=== PATIENT | female | born 1965 | race Caucasian/White ===

== ENCOUNTER 2023-04-23 13:23 | Observation (INO) ==
--- NOTE | 2023-04-23 13:29 | ED Triage Note ---
Date of Service April 23, 2023 History of Present Illness This patient was briefly evaluated while in triage. An abbreviated physical exam was performed. This patient is a 57-year-old Female who presents to the ED for evaluation uncontrolled/unexplained weepiness/crying, confusion, trouble finding her wor ds/finishing thoughts, off balance, slurring of speech on occasion ongoing x 5-7 days no focal facial droop or extremity weakness no history of CVA history of hypertension Physical Exam GENERAL: Tearful, ambulatory into triage independently CARDIOVASCULAR: RRR RESPIRATORY: CTA NEURO: CN II-XII grossly intact, speech clear, normal gait, equal market research lead strength, answers questions appropriately Initial orders for labs and / or imaging were placed and patient was placed in the waiting area until a bed is available. Please see further documentation for the full ED course.
--- NOTE | 2023-04-23 17:07 | Emergency Department Note ---
History of Present Illness General Chief complaint: TIA Symptoms Stated complaint: CONFUSED,SLURRING OF SPEECH,UNBALANCED Time Seen by Provider: 04/23/23 16:42 Source: patient, family ( who is at the bedside), RN notes reviewed and old records reviewed (Including in office if it is from 01-16-2023) Mode of arrival: ambulatory Limitations: no limitations History of Present Illness This patient is a 57-year-old female comes in after having difficulty talking and feeling confused for the last 5 days. Initially itwas off-and-on but its been more persistent and she feels her balance is off at x2 she also feels very emotional. She was attributing it to her medication she is on a statin which she thinks may have been making her confused she started at the end of December. She had no fall or trauma denies headache. No fever chills. no change in vision. no focal numbness or weakness. No chest pain or shortness of breath or abdominal pain. She is having a hard time getting the words out but no slurred speech. She does have a history of a provoked DVT but is on no blood thinners at present Home Medications Medication Instructions Recorded Confirmed Type empagliflozin 10 mg tablet 10 mg PO QAM #90 tabs 01/16/23 04/23/23 Rx (Jardiance) rosuvastatin 20 mg tablet 20 mg PO DAILY #90 tabs 01/16/23 04/23/23 Rx telmisartan 20 mg tablet 20 mg PO DAILY #90 tabs 01/16/23 04/23/23 Rx Allergies Allergy/AdvReac Type Severity Reaction Status Date / Time No Known Allergies Allergy Unknown Verified 04/23/23 19:43 Past Med/Surg History Medical History COVID-19 (~2020) Hyperlipidemia rosuvastatin Pulmonary embolism 2005--after left knee arthroscopy and on control--no blood thinners Surgical History History of arthroscopy of left knee meniscus repair History of section History of colonoscopy History of tooth extraction History of wisdom tooth extraction Family History Grandmother (Paternal) Family history of diabetes mellitus Grandmother (Maternal) Family history of diabetes mellitus Father Diabetes Heart disease Drug abuse Brother Heart disease Other No family history of adverse response to anesthesia Denies family history of Ovarian cancer Social History Smoking Status: Never smoker Tobacco Type: Cigarettes Age Started Using Tobacco: 11; Age Quit Using Tobacco: 18; Cigarettes Per Day: socailly; Second Hand Exposure: No; Do You Dip or Chew Tobacco: No; Hx Alcohol Use: No Hx Substance Use: No Preferred Language: Welsh Communication Ability: Effective Visual Impairment: Diminished Hearing Ability: Hard of Hearing Bioinformatics Specialist Required: No Beliefs That Will Affect Care: None marital status: Current Living Situation: Spouse Current Living Situation Comment: Lives with and 2 kids 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 Feels Safe at Home: Yes Childhood Exposure to Second-Hand Smoke: Yes Diet: regular caffeine: Yes Dental Care, Regularly: Yes Physical Activity Frequency: 1-2 Times per Week Seatbelt Use: always Sunscreen Use: Yes (sometimes) Do you think of yourself as: straight/heterosexual Assistive Devices: Glasses Assistive Devices Comment: readers Review of Systems A total of 10 systems reviewed and were otherwise negative Physical Exam Vital Signs Vital Signs - 24 hr 04/23/23 13:28 04/23/23 17:03 04/23/23 16:53 Temperature 36.5 C Temperature Source Temporal Artery Scan Pulse Rate 81 88 Pulse Rate [Apical] 89 Pulse Rate from SpO2 Sensor Pulse Rhythm [Apical] Regular Pulse Strength [Apical] Normal Respiratory Rate 18 20 Respiratory Effort / Characteristics Non-Labored Non-Labored Spontaneous Respiratory Depth Normal Normal Respiratory Pattern Regular Regular Blood Pressure 171/100 H Blood Pressure [Right Arm] 166/116 H Blood Pressure Mean 123 Blood Pressure Mean [Right Arm] 132 Blood Pressure Position [Right Arm] Sitting Pulse Oximetry 96 95 Oxygen Delivery Method Room Air Room Air Sepsis Recent Fever Within 48 Hours No Sepsis New/Unexplained Change in Mental Status N/A Sepsis Action Taken by Nursing No Action Required 04/23/23 18:49 04/23/23 19:00 Temperature Temperature Source Pulse Rate 76 Pulse Rate [Apical] 75 Pulse Rate from SpO2 Sensor 77 Pulse Rhythm [Apical] Regular Pulse Strength [Apical] Normal Respiratory Rate 20 20 Respiratory Effort / Characteristics Non-Labored Spontaneous Respiratory Depth Normal Respiratory Pattern Regular Blood Pressure 144/80 H Blood Pressure [Right Arm] 142/80 H Blood Pressure Mean 101 Blood Pressure Mean [Right Arm] 100 Blood Pressure Position [Right Arm] Sitting Pulse Oximetry 98 95 Oxygen Delivery Method Room Air Sepsis Recent Fever Within 48 Hours Sepsis New/Unexplained Change in Mental Status Sepsis Action Taken by Nursing General: Well developed well nourished middle-age female who is intermittently teary-eyed but answers all questions appropriately she does appear to have some issues with getting the words out but they are not slurred in no acute distress, breathing comfortably on room air. Alert and orient x3 HEENT: Normal cephalic atraumatic. Pupils are equal round and reactive to light. Extraocular movements are intact. Oropharynx is pink with moist mucous membranes. No swelling of the mouth lips or tongue. Neck: Supple with a midline trachea. No meningeal signs or stiffness, no JVD or bruits. No Stridor. Chest: Clear to auscultation bilaterally. No wheezes or rhonchi. No increased work of breathing. Heart: Regular rate and rhythm without murmurs or gallops. Abdomen: Soft nontender, nondistended without rebound guarding or rigidity. Extremities: No cyanosis clubbing or edema. No calf tenderness or assymetry Spine/Back. Non tender to palpation. No CVA tenderness Skin: Good turgor without rashes. Neurologic exam: Cranial nerves two through 12 are intact. Motor and sensation are intact and symmetrical throughout. No tremor. She does have some trouble getting the words out. Finger-nose intact. No pronator drift. Course Administered Medications Enoxaparin Sodium (Enoxaparin Inj 40 Mg/0.4 Ml Syr) 40 mg SQ Q24H [facility] Stop: 05/23/23 21:59 Last Admin: 04/23/23 22:21 Dose: 40 mg Documented By: KOFI Discontinued Medications Aspirin (Aspirin 81 Mg Chew) 324 mg PO NOW STA Stop: 04/23/23 21:11 Last Admin: 04/23/23 22:20 Dose: 324 mg Documented By: KOFI Clopidogrel Bisulfate (Clopidogrel Bisulfate 300 Mg Tab) 300 mg PO NOW STA Stop: 04/23/23 21:11 Last Admin: 04/23/23 22:20 Dose: 300 mg Documented By: KOFI Ioversol (Ioversol 350 Mg 125ml Prefilled Syringe) 117 ml IV ONCE ONE Stop: 04/23/23 17:46 Last Admin: 04/23/23 17:45 Dose: 117 ml Documented By: CHRISTOPHE Medical Decision Making Differential Diagnosis Stroke, intracranial process or mass, infection, electrolyte or metabolic abnor mality, trauma Medical Records Attestation: I reviewed the patient's medical records. Home Medications Current Medication List: was personally reviewed by me Laboratory Data Attestation: I reviewed the patient's lab results. 04/23/23 17:07 04/23/23 17:07 Lab Results 04/23/23 04/23/23 04/23/23 Range/Units 17:07 17:07 17:07 WBC 8.09 (4.8-10.8) K/ul RBC 5.65 H (4.20-5.40) M/uL Hgb 16.9 H (12.0-16.0) g/dl POC Hgb (12.0-16.0) g/dl Hct 50.0 H (37.0-47.0) % POC Hct (37-47) % MCV 88.5 (80.0-100.0) fL MCH 29.9 (25.0-34.0) pg MCHC 33.8 (32.0-36.0) g/dL RDW Std Deviation 44.0 (36.4-46.3) fL RDW Coeff of Yong 13.6 (11.5-14.5) % Plt Count 277 (130-400) K/uL MPV 9.7 (9.4-12.4) fL Immature Gran % (Auto) 0.1 % Neut % (Auto) 49.8 % Lymph % (Auto) 40.5 % Wharton % (Auto) 7.0 % Eos % (Auto) 1.9 % Baso % (Auto) 0.7 % Neut # (Auto) 4.02 (1.40-6.50) K/uL Lymph # (Auto) 3.28 (1.2-3.4) K/uL Wharton # (Auto) 0.57 (0.11-0.59) K/uL Eos # (Auto) 0.15 (0-0.50) K/uL Baso # (Auto) 0.06 (0-0.2) K/uL Immature Gran # (Auto) 0.01 (0.01-0.20) K/uL PT Cancelled INR Cancelled APTT Cancelled PTT Ratio Cancelled POC Sodium (135-144) mmol/L Sodium (136-145) mmol/L POC Potassium (3.3-5.0) mmol/L Potassium (3.5-5.1) mmol/L POC Chloride (101-112) mmol/L Chloride (98-107) mmol/L Carbon Dioxide (21-32) mmol/L POC Total CO2 (24-31) mmol/L Anion Gap (3-11) POC Anion Gap (16-25) mmol/L POC BUN (7-18) mg/dl BUN (6-23) mg/dl Creatinine (0.6-1.2) mg/dl POC Creatinine (0.6-1.3) mg/dl Est Cr Clr Drug Dosing ml/min Est GFR ( Amer) ml/min Est GFR (Non-Af Amer) ml/min BUN/Creatinine Ratio (10-20) Glucose (70-99(Fasting)) mg/dl POC Glucose (other) (70-99) mg/dl Calcium (8.6-10.3) mg/dl POC Ioniz Calcium Lobo (1.12-1.32) mmol/l Magnesium (1.7-2.4) mg/dl Total Bilirubin (0.2-1.0) mg/dl AST (13-39) U/L ALT (7-52) U/L Alkaline Phosphatase (34-104) U/L Troponin I High Sens (0-14) pg/ml Total Protein (6.0-8.3) gm/dl Albumin (3.4-5.0) gm/dl Globulin (2.5-4.0) gm/dl Albumin/Globulin Ratio (0.9-2) TSH 2.307 (0.300-4.500) uIu/ml 04/23/23 04/23/23 04/23/23 Range/Units 17:07 17:16 18:17 WBC (4.8-10.8) K/ul RBC (4.20-5.40) M/uL Hgb (12.0-16.0) g/dl POC Hgb 17.7 H (12.0-16.0) g/dl Hct (37.0-47.0) % POC Hct 52 H (37-47) % MCV (80.0-100.0) fL MCH (25.0-34.0) pg MCHC (32.0-36.0) g/dL RDW Std Deviation (36.4-46.3) fL RDW Coeff of Yong (11.5-14.5) % Plt Count (130-400) K/uL MPV (9.4-12.4) fL Immature Gran % (Auto) % Neut % (Auto) % Lymph % (Auto) % Wharton % (Auto) % Eos % (Auto) % Baso % (Auto) % Neut # (Auto) (1.40-6.50) K/uL Lymph # (Auto) (1.2-3.4) K/uL Wharton # (Auto) (0.11-0.59) K/uL Eos # (Auto) (0-0.50) K/uL Baso # (Auto) (0-0.2) K/uL Immature Gran # (Auto) (0.01-0.20) K/uL PT 11.1 INR 1.0 APTT 27.0 PTT Ratio 1.0 POC Sodium 143 (135-144) mmol/L Sodium 140 (136-145) mmol/L POC Potassium 3.8 (3.3-5.0) mmol/L Potassium 3.8 (3.5-5.1) mmol/L POC Chloride 103 (101-112) mmol/L Chloride 104 (98-107) mmol/L Carbon Dioxide 28 (21-32) mmol/L POC Total CO2 25 (24-31) mmol/L Anion Gap 8 (3-11) POC Anion Gap 19.0 (16-25) mmol/L POC BUN 13 (7-18) mg/dl BUN 14 (6-23) mg/dl Creatinine 0.84 (0.6-1.2) mg/dl POC Creatinine 0.7 (0.6-1.3) mg/dl Est Cr Clr Drug Dosing 86.1 ml/min Est GFR ( Amer) 88.8 ml/min Est GFR (Non-Af Amer) 76.6 ml/min BUN/Creatinine Ratio 16.7 (10-20) Glucose 98 (70-99(Fasting)) mg/dl POC Glucose (other) 102 H (70-99) mg/dl Calcium 9.9 (8.6-10.3) mg/dl POC Ioniz Calcium Lobo 1.27 (1.12-1.32) mmol/l Magnesium 2.2 (1.7-2.4) mg/dl Total Bilirubin 0.4 (0.2-1.0) mg/dl AST 16 (13-39) U/L ALT 20 (7-52) U/L Alkaline Phosphatase 62 (34-104) U/L Troponin I High Sens 2.7 (0-14) pg/ml Total Protein 8.5 H (6.0-8.3) gm/dl Albumin 4.7 (3.4-5.0) gm/dl Globulin 3.8 (2.5-4.0) gm/dl Albumin/Globulin Ratio 1.2 (0.9-2) TSH (0.300-4.500) uIu/ml Imaging Data Attestation: I personally reviewed and interpreted this imaging study as foll ows: My Impression: Head CTthere is a hypodensity lateral to the ventricles at the posterior of the frontal lobe Radiologist's Impression: Head CT 04/23/23 13:31 CT angio head w con, CT angio neck with con, CT head/brain wo con CLINICAL HISTORY: 57 years-old Female with confusion, trouble word finding x 1 week. Acute confusion COMPARISON STUDY: None TECHNIQUE: Unenhanced axial CT scan of the brain is performed. Subsequently, following the IV administration of 117 cc of Optiray, CT angiogram of the head and neck was performed from the skull base to the vertex. Images are reviewed in the axial, sagittal, and coronal planes. 3-D MIPS images are created and assessed. IV contrast was administered without complication. All measurements were obtained according to NASCET criteria. A dose lowering technique was utilized adhering to the principles of ALARA. CT DOSE: 1242.25 mGy.cm FINDINGS: CT BRAIN: There is no acute intracranial hemorrhage, midline shift, hydrocephalus, intracranial mass, territorial ischemia or abnormal extra-axial collections. No abnormal intra-axial or extra-axial enhancement. Scattered white matter hypodensities. Ill-defined 1.1 cm focus of decreased attenuation within the right frontal lobe felix ready to on image 21 series 2. Mastoid air cells and middle ear cavities are clear. No calvarial fracture. Paranasal sinuses are clear. CT ANGIOGRAM OF THE HEAD AND NECK: Mild atherosclerosis of the thoracic aorta. Patency of innominate and image subclavian arteries. Common carotid arteries are patent. Atherosclerosis of the carotid bulbs. The internal carotid arteries are patent. Streak artifact from dental hardware limits the study. Areas of high-grade stenosis noted within the M1 segment of the left middle cerebral artery. The right middle and bilateral anterior cerebral arteries are patent. Dominant left vertebral artery. The vertebrobasilar system and posterior cerebral arteries are widely patent. There is no aneurysm, high-grade stenosis, or proximal branch occlusion identified. Dural sinuses appear patent. Lung apices are clear. Unremarkable soft tissues. Degenerative changes of the cervical spine. IMPRESSION: 1. No acute intracranial hemorrhage, midline shift or acute territorial infarct. 2. Mild ill-defined white matter hypodensities are nonspecific, however favor chronic microvascular ischemic disease. 3. 1.1 cm hypodense focus within the right frontal lobe felix radiata may represent an additional area of white matter disease versus an age-indeterminate small infarct. 4. High-grade stenosis of the M1 segment of the left middle cerebral artery. 5. Otherwise unremarkable CTA of the head and neck. ACT 112: Negative or not required by law. The above report was generated using voice recognition software. It may contain grammatical, syntax or spelling errors. Electronically signed by: Martir Ansari M.D. 04/23/2023 6:05 PM Head CTA 04/23/23 13:31 CT angio head w con, CT angio neck with con, CT head/brain wo con CLINICAL HISTORY: 57 years-old Female with confusion, trouble word finding x 1 week. Acute confusion COMPARISON STUDY: None TECHNIQUE: Unenhanced axial CT scan of the brain is performed. Subsequently, following the IV administration of 117 cc of Optiray, CT angiogram of the head and neck was performed from the skull base to the vertex. Images are reviewed in the axial, sagittal, and coronal planes. 3-D MIPS images are created and assessed. IV contrast was administered without complication. All measurements were obtained according to NASCET criteria. A dose lowering technique was utilized adhering to the principles of ALARA. CT DOSE: 1242.25 mGy.cm FINDINGS: CT BRAIN: There is no acute intracranial hemorrhage, midline shift, hydrocephalus, intracranial mass, territorial ischemia or abnormal extra-axial collections. No abnormal intra-axial or extra-axial enhancement. Scattered white matter hypodensities. Ill-defined 1.1 cm focus of decreased attenuation within the right frontal lobe felix ready to on image 21 series 2. Mastoid air cells and middle ear cavities are clear. No calvarial fracture. Paranasal sinuses are kj ar. CT ANGIOGRAM OF THE HEAD AND NECK: Mild atherosclerosis of the thoracic aorta. Patency of innominate and image subclavian arteries. Common carotid arteries are patent. Atherosclerosis of the carotid bulbs. The internal carotid arteries are patent. Streak artifact from dental hardware limits the study. Areas of high-grade stenosis noted within the M1 segment of the left middle cerebral artery. The right middle and bilateral anterior cerebral arteries are patent. Dominant left vertebral artery. The vertebrobasilar system and posterior cerebral arteries are widely patent. There is no aneurysm, high-grade stenosis, or proximal branch occlusion identified. Dural sinuses appear patent. Lung apices are clear. Unremarkable soft tissues. Degenerative changes of the cervical spine. IMPRESSION: 1. No acute intracranial hemorrhage, midline shift or acute territorial infarct. 2. Mild ill-defined white matter hypodensities are nonspecific, however favor chronic microvascular ischemic disease. 3. 1.1 cm hypodense focus within the right frontal lobe felix radiata may represent an additional area of white matter disease versus an age-indeterminate small infarct. 4. High-grade stenosis of the M1 segment of the left middle cerebral artery. 5. Otherwise unremarkable CTA of the head and neck. ACT 112: Negative or not required by law. The above report was generated using voice recognition software. It may contain grammatical, syntax or spelling errors. Electronically signed by: Martir Ansari M.D. 04/23/2023 6:05 PM Neck CTA 04/23/23 13:31 CT angio head w con, CT angio neck with con, CT head/brain wo con CLINICAL HISTORY: 57 years-old Female with confusion, trouble word finding x 1 week. Acute confusion COMPARISON STUDY: None TECHNIQUE: Unenhanced axial CT scan of the brain is performed. Subsequently, following the IV administration of 117 cc of Optiray, CT angiogram of the head and neck was performed from the skull base to the vertex. Images are reviewed in the axial, sagittal, and coronal planes. 3-D MIPS images are created and assessed. IV contrast was administered without complication. All measurements were obtained according to NASCET criteria. A dose lowering technique was utilized adhering to the principles of ALARA. CT DOSE: 1242.25 mGy.cm FINDINGS: CT BRAIN: There is no acute intracranial hemorrhage, midline shift, hydrocephalus, intracranial mass, territorial ischemia or abnormal extra-axial collections. No abnormal intra-axial or extra-axial enhancement. Scattered white matter hypodensities. Ill-defined 1.1 cm focus of decreased attenuation within the right frontal lobe felix ready to on image 21 series 2. Mastoid air cells and middle ear cavities are clear. No calvarial fracture. Paranasal sinuses are clear. CT ANGIOGRAM OF THE HEAD AND NECK: Mild atherosclerosis of the thoracic aorta. Patency of innominate and image subclavian arteries. Common carotid arteries are patent. Atherosclerosis of the carotid bulbs. The internal carotid arteries are patent. Streak artifact from dental hardware limits the study. Areas of high-grade stenosis noted within the M1 segment of the left middle cerebral artery. The right middle and bilateral anterior cerebral arteries are patent. Dominant left vertebral artery. The vertebrobasilar system and posterior cerebral arteries are widely patent. There is no aneurysm, high-grade stenosis, or proximal branch occlusion identified. Dural sinuses appear patent. Lung apices are clear. Unremarkable soft tissues. Degenerative changes of the c ervical spine. IMPRESSION: 1. No acute intracranial hemorrhage, midline shift or acute territorial infarct. 2. Mild ill-defined white matter hypodensities are nonspecific, however favor chronic microvascular ischemic disease. 3. 1.1 cm hypodense focus within the right frontal lobe felix radiata may represent an additional area of white matter disease versus an age-indeterminate small infarct. 4. High-grade stenosis of the M1 segment of the left middle cerebral artery. 5. Otherwise unremarkable CTA of the head and neck. ACT 112: Negative or not required by law. The above report was generated using voice recognition software. It may contain grammatical, syntax or spelling errors. Electronically signed by: Martir Ansari M.D. 04/23/2023 6:05 PM ECG Data Attestation: I personally reviewed and interpreted this ECG as follows: Indication: + weakness Rate (beats per minute): 72 Rhythm: + normal sinus ECG Intervals/blocks: + Normal QRS, + Normal QT and + Normal CT ECG [place]: + Normal ECG ST segments: + Normal ST segments ECG Findings: + LVH; no PACs or no PVCs Comparison ECG Date: from (08/14/2006) Change: no significant change MDM Narrative This patient comes in as described above. She was placed in room A2. She has been having neurologic symptoms for about 5 days. She is well outside of any thrombolytic or neuro interventional window at this point. I will I am concerned with her symptoms that this may be neurologic or a central neurologic process. IV access was established and blood work was obtained i-STAT labs and blood sugar were obtained as well. She had a full stroke type work-up including CAT scan and CT angiography of the head and neck. She was reassessed frequently. She has no significant electrolyte or metabolic abnormality. EKG does not suggest acute coronary syndrome or arrhythmia. She has nothing to suggest infection. CAT scan of her head does show a hypodensity concerning for a stroke or white matter disease. There is a stenosis of the left M1 segment on the opposite side. I did discuss case with Dr. Ralph who feels the patient needs an MRI. I then discussed case with the [facility] hospitalist team and Dr. Andrade as well as the resident as the patient will be admitted/observed for a neurologic work-up. 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
[2023-04-23 17:22] LABS: Basophils # (auto) 0.06 K/uL (0-0.2); Basophils % (auto) 0.7 %; Eosinophils # (auto) 0.15 K/uL (0-0.50); Eosinophils % (auto) 1.9 %; Hemoglobin 16.9 g/dl (12.0-16.0); Immature Granulocytes # (auto) 0.01 K/uL (0.01-0.20); Immature Granulocytes % (auto) 0.1 %; Lymphocytes # (auto) 3.28 K/uL (1.2-3.4); Lymphocytes % (auto) 40.5 %; Mean Corpuscular Hemoglobin 29.9 pg (25.0-34.0); Mean Corpuscular Hgb Conc 33.8 g/dL (32.0-36.0); Mean Corpuscular Volume 88.5 fL (80.0-100.0); Mean Platelet Volume 9.7 fL (9.4-12.4); Monocytes # (auto) 0.57 K/uL (0.11-0.59); Neutrophils # (auto) 4.02 K/uL (1.40-6.50); Neutrophils % (auto) 49.8 %; Platelet Count 277 K/uL (130-400); RDW Coefficient of Variation 13.6 % (11.5-14.5); Red Blood Count 5.65 M/uL (4.20-5.40); White Blood Count 8.09 K/ul (4.8-10.8)
[2023-04-23 17:30] LABS: iSTAT Creatinine 0.7 mg/dl (0.6-1.3); iSTAT Hemoglobin 17.7 g/dl (12.0-16.0); iSTAT Ionized Calcium 1.27 mmol/l (1.12-1.32); iSTAT Potassium 3.8 mmol/L (3.3-5.0)
[2023-04-23 17:41] LABS: Albumin Globulin Ratio 1.2 (0.9-2); Albumin Level 4.7 gm/dl (3.4-5.0); BUN Creatinine Ratio 16.7 (10-20); Bilirubin,Total 0.4 mg/dl (0.2-1.0); Calcium 9.9 mg/dl (8.6-10.3); Creatinine Clr Calc Pharmacy 86.1 ml/min; Est GFR (African American) 88.8 ml/min; Est GFR (Non-African American) 76.6 ml/min; Globulin 3.8 gm/dl (2.5-4.0); Magnesium 2.2 mg/dl (1.7-2.4); Potassium 3.8 mmol/L (3.5-5.1); Total Protein 8.5 gm/dl (6.0-8.3)
[2023-04-23] MEDS ORDERED: IOVERSOL 350 MG 125mL Prefilled Syringe IV ONE (17:45)
[2023-04-23 17:48] LABS: Troponin I High Sensitivity 2.7 pg/ml (0-14)
--- NOTE | 2023-04-23 18:07 | CT Scan Report ---
CT angio head w con, CT angio neck with con, CT head/brain wo con CLINICAL HISTORY: 57 years-old Female with confusion, trouble word finding x 1 week. Acute confusi on COMPARISON STUDY: None TECHNIQUE: Unenhanced axial CT scan of the brain is performed. Subsequently, following the IV adminis tration of 117 cc of Optiray, CT angiogram of the head and neck was performed from the skull base to the vertex. Images are reviewed in the axial, sagittal, and coronal planes. 3-D MIPS images are creat ed and assessed. IV contrast was administered without complication. All measurements were obtained ac cording to NASCET criteria. A dose lowering technique was utilized adhering to the principles of TANNA Pierre. CT DOSE: 1242.25 mGy.cm FINDINGS: CT BRAIN: There is no acute intracranial hemorrhage, midline shift, hydrocephalus, intracranial mass, territori al ischemia or abnormal extra-axial collections. No abnormal intra-axial or extra-axial enhancement. Scattered white matter hypodensities. Ill-defined 1.1 cm focus of decreased attenuation within the ri ght frontal lobe felix ready to on image 21 series 2. Mastoid air cells and middle ear cavities are clear. No calvarial fracture. Paranasal sinuses are clear. CT ANGIOGRAM OF THE HEAD AND NECK: Mild atherosclerosis of the thoracic aorta. Patency of innominate and image subclavian arteries. Comm on carotid arteries are patent. Atherosclerosis of the carotid bulbs. The internal carotid arteries a re patent. Streak artifact from dental hardware limits the study. Areas of high-grade stenosis noted within the M1 segment of the left middle cerebral artery. The right middle and bilateral anterior cer ebral arteries are patent. Dominant left vertebral artery. The vertebrobasilar system and posterior c erebral arteries are widely patent. There is no aneurysm, high-grade stenosis, or proximal branch occ lusion identified. Dural sinuses appear patent. Lung apices are clear. Unremarkable soft tissues. Degenerative changes of the cervical spine. IMPRESSION: 1. No acute intracranial hemorrhage, midline shift or acute territorial infarct. 2. Mild ill-defined white matter hypodensities are nonspecific, however favor chronic microvascular i schemic disease. 3. 1.1 cm hypodense focus within the right frontal lobe eflix radiata may represent an additional ar ea of white matter disease versus an age-indeterminate small infarct. 4. High-grade stenosis of the M1 segment of the left middle cerebral artery. 5. Otherwise unremarkable CTA of the head and neck. ACT 112: Negative or not required by law. The above report was generated using voice recognition software. It may contain grammatical, syntax o r spelling errors. Electronically signed by: Martir Ansari M.D. 04/23/2023 6:05 PM
[2023-04-23 19:03] LABS: Prothrombin Time 11.1 Seconds (9.0-12.0)
--- NOTE | 2023-04-23 19:04 | Hospitalist Progress Note ---
Date of Service April 23, 2023 Assessment & Plan (1) Stroke: Plan: - Imagining with lesions concerning for stroke - Symptoms started 5 days ago; Out of window antithrombotics, permissive HTN - Dual Antiplatelet; aspirin/Plavix with loading dose - Increase rosuvastatin from 20mg to 40mg - Brain MRI - consult neuro - TTE with bubble study (2) Aphasia: Plan: As per above (3) Erythrocytosis: Plan: - Hgb= 16.9 - repeat qAM - Jak2, EPO and peripheral smear could be considered for further workup of erythrocytosis - Could also consider hypercoagulability work-up given history of PE and current symptoms (4) HTN, goal below 130/80: Plan: - out of window for permissive HTN, resume home medications (5) T2DM (type 2 diabetes mellitus): Plan: - last hemoglobin a1c= 6.8 03/2023 - continue Jardiance (6) Hyperlipidemia: Plan: - increase rosuvastatin from 20 to 40mg - lipid panel from 03/2023 Subjective 57 year old female with a past medical history of HLD, provoked PE and DM2 presenting with 5 days of neurological symptoms. She states that for the past 5 days she has been having trouble with word finding, has been more confused and has felt off balance. She also notes that she has had increased emotional lability and hot flashes for the past few months, last menstrual period was about 2 years ago. Denies headache, vision changes, slurred speech, injury. Does note family history of stroke. ED Work-Up Significant for: Head CT, Head/Neck CTA with . No acute intracranial hemorrhage, midline shift or acute territorial infarct. Mild ill-defined white matter hypodensities are nonspecific, however favor chronic microvascular ischemic disease.1.1 cm hypodense focus within the right frontal lobe felix radiata may represent an additional area of white matter disease versus an age- indeterminate small infarct.High-grade stenosis of the M1 segment of the left middle cerebral artery. Review of Systems Review of Systems: As per above Physical Exam Physical Exam: Constitutional: well-appearing, no acute distress HEENT: NCAT, no conjunctival injection CV: regular rhythm, no murmur appreciated, extremities well-perfused, no LE edema Resp: CTABL, no wheezes/rales/rhonchi appreciated, no increased work of breathing GI: soft, nondistended, nontender MSK: no gross deformities appreciated Skin: warm, dry, no rash appreciated Neurologic: CN's II-XI intact bilaterally, moves all extremities and awake; no focal motor deficits Speech / Cognition: normal speech Motor/Sensory: normal movement and no sensory deficit Strength 5/5 upper and lower extremities Results & Data Results & Data Vital Signs (Past 12 Hours) Vital Signs Temp Pulse Pulse Resp BP BP Pulse Ox 04/23/23 18:49 75 20 142/80 H 98 04/23/23 16:53 89 20 166/116 H 95 04/23/23 17:03 88 04/23/23 13:28 36.5 C 81 18 171/100 H 96 O2 Del Method 04/23/23 18:49 Room Air 04/23/23 16:53 Room Air 04/23/23 17:03 04/23/23 13:28 Room Air Resident Activity Tracking Resident Involvement: Resident Care Provided Care Provided: Adult Hospital Medicine
[2023-04-23 19:31] LABS: Appearance Urine Clear (Clear); Bacteria Urine Automated Negative (Negative); Bilirubin Urine Negative (Negative); Blood Urine Negative (Negative); Color Urine Yellow; Epithelial Cell Urine Auto >30 /lpf (0-5); Glucose Urine UA 2+ (Negative); Ketones Urine 1+ (Negative); Leukocyte Esterase Urine Negative (Negative); Nitrite Urine Negative (Negative); Protein Urine Trace (Negative); RBC Urine Automated 0-4 /hpf (0-4); Specific Gravity Urine > 1.045 (1.000-1.030); Urobilinogen Urine Negative (Negative)
[2023-04-23 19:57] LABS: Cast Urine Automated 0 /lpf (0-5)
[2023-04-23] MEDS ORDERED: ASPIRIN 81 MG CHEW PO STA (21:10)
[2023-04-23] MEDS ORDERED: CLOPIDOGREL BISULFATE 300 MG TAB PO STA (21:10)
--- NOTE | 2023-04-23 21:17 | History & Physical Report ---
Date of Service April 23, 2023 Assessment & Plan (1) Stroke: Plan: - Imagining with lesions concerning for stroke - Symptoms started 5 days ago; Out of window antithrombotics, permissive HTN - Dual Antiplatelet; aspirin/Plavix with loading dose - Increase rosuvastatin from 20mg to 40mg - Brain MRI - consult neuro - TTE with bubble study (2) Aphasia: Plan: As per above (3) Erythrocytosis: Plan: - Hgb= 16.9 - repeat qAM - Jak2, EPO and peripheral smear could be considered for further workup of erythrocytosis - Could also consider hypercoagulability work-up given history of PE and current symptoms (4) HTN, goal below 130/80: Plan: - out of window for permissive HTN, resume home medications (5) T2DM (type 2 diabetes mellitus): Plan: - last hemoglobin a1c= 6.8 03/2023 - continue Jardiance (6) Hyperlipidemia: Plan: - increase rosuvastatin from 20 to 40mg - lipid panel from 03/2023 Plan Diet: Full diet pending speech eval Dispo: Med Surg with Tele DVT Prophylaxis: Lovenox Code Status: Full Admission and Anticipated Discharge Date Admission Date: April 23, 2023 History of Present Illness Primary Care Provider: RAMY Conde 57 year old female with a past medical history of HLD, provoked PE and DM2 presenting with 5 days of neurological symptoms. She states that for the past 5 days she has been having trouble with word finding, has been more confused and has felt off balance. She also notes that she has had increased emotional lability and hot flashes for the past few months, last menstrual period was about 2 years ago. Denies headache, vision changes, slurred speech, injury. Does note family history of stroke. ED Work-Up Significant for: Head CT, Head/Neck CTA with. No acute intracranial hemorrhage, midline shift or acute territorial infarct. Mild ill-defined white matter hypodensities are nonspecific, however favor chronic microvascular isc hemic disease.1.1 cm hypodense focus within the right frontal lobe felix radiata may represent an additional area of white matter disease versus an age- indeterminate small infarct.High-grade stenosis of the M1 segment of the left middle cerebral artery. Allergies Allergy/AdvReac Type Severity Reaction Status Date / Time No Known Allergies Allergy Unknown Verified 04/23/23 19:43 Home Medications Medication Instructions Recorded Confirmed Type empagliflozin 10 mg tablet 10 mg PO QAM #90 tabs 01/16/23 04/25/23 Rx (Jardiance) rosuvastatin 20 mg tablet 20 mg PO DAILY #90 tabs 01/16/23 04/25/23 Rx telmisartan 20 mg tablet 20 mg PO DAILY #90 tabs 01/16/23 04/25/23 Rx aspirin 81 mg tablet,delayed 81 mg PO QAM 21 days #21 tabs 04/24/23 04/25/23 Rx release clopidogrel 75 mg tablet 75 mg PO QAM #30 tabs 04/24/23 04/25/23 Rx Past Med/Surg History Medical History COVID-19 (~2020) Hyperlipidemia rosuvastatin Pulmonary embolism 2005--after left knee arthroscopy and on control--no blood thinners Surgical History History of arthroscopy of left knee meniscus repair History of section History of colonoscopy History of tooth extraction History of wisdom tooth extraction Family History (Updated 04/24/23 @ 09:29 by Chacorta Ralph MD) Grandmother (Paternal) Family history of diabetes mellitus Grandmother (Maternal) Family history of diabetes mellitus Father , age 76 of MIs Diabetes Heart disease Drug abuse Myocardial infarction Brother Heart disease Other No family history of adverse response to anesthesia Denies family history of Ovarian cancer Social History (Updated 04/24/23 @ 09:30 by Chacorta Ralph MD) Smoking Status: Former smoker Tobacco Type: Cigarettes Age Started Using Tobacco: 11; Age Quit Using Tobacco: 18; Cigarettes Per Day: socailly; Second Hand Exposure: No; Do You Dip or Chew Tobacco: No; Hx Alcohol Use: No Hx Substance Use: No Preferred Language: Venezuelan Communication Ability: Effective Visual Impairment: Diminished Hearing Ability: Hard of Hearing [employer] Professor Required: No Beliefs That Will Affect Care: None marital status: Current Living Situation: Spouse Current Living Situation Comment: Lives with and 2 kids 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 Feels Safe at Home: Yes Childhood Exposure to Second-Hand Smoke: Yes Diet: regular caffeine: Yes Dental Care, Regularly: Yes Physical Activity Frequency: 1-2 Times per Week Seatbelt Use: always Sunscreen Use: Yes (sometimes) Do you think of yourself as: straight/heterosexual Assistive Devices: None Review of Systems Review of Systems: As per above Physical Exam Physical Exam: Constitutional: well-appearing, no acute distress HEENT: NCAT, no conjunctival injection CV: regular rhythm, no murmur appreciated, extremities well-perfused, no LE edema Resp: CTABL, no wheezes/rales/rhonchi appreciated, no increased work of breathing GI: soft, nondistended, nontender MSK: no gross deformities appreciated Skin: warm, dry, no rash appreciated Neuro: CN's II-XI intact bilaterally, moves all extremities and awake; no focal motor deficits Speech / Cognition: normal speech Motor/Sensory: normal movement and no sensory deficit Strength 5/5 upper and lower extremities Results & Data Results & Data Vital Signs (Past 12 Hours) Vital Signs Temp Pulse Pulse Resp BP BP Pulse Ox 04/23/23 20:30 87 19 120/88 93 04/23/23 20:00 80 16 131/83 94 04/23/23 19:31 90 22 118/84 04/23/23 19:30 79 17 94 04/23/23 20:55 04/23/23 19:00 76 20 144/80 H 95 04/23/23 18:49 75 20 142/80 H 98 04/23/23 16:53 89 20 166/116 H 95 04/23/23 17:03 88 04/23/23 13:28 36.5 C 81 18 171/100 H 96 O2 Del Method 04/23/23 20:30 04/23/23 20:00 04/23/23 19:31 04/23/23 19:30 04/23/23 20:55 Room Air 04/23/23 19:00 04/23/23 18:49 Room Air 04/23/23 16:53 Room Air 04/23/23 17:03 04/23/23 13:28 Room Air Code Status & VTE Plan VTE Prophylaxis Plan VTE Prophylaxis will be ordered: Yes Supervising Physician Co-Signing Physician Notes Attending addendum: I have physically seen this patient, have supervised the medical residents activities, and agree with the H&P unless as otherwise noted. Assessment and Plan: CVA/aphasia- The patient will be admitted to telemetry for serial cardiac enzymes, serial EKG's, cardiac rhythm monitoring and a 2-D echocardiogram with Dopplers. CT head without contrast, CTA of head and neck with chronic microvascular ischemic disease. 1.1 cm hypodense focus within the right frontal lobe felix radiata suggesting an age-indeterminate small infarct. High-grade stenosis of the M1 segment of the left middle cerebral artery MRI brain shows scattered areas of acute infarct in the left temporal deep white matter. Order hypercoagulable panel Aspirin/Plavix as noted Stroke without tPA order set Hyperlipidemia- Increase rosuvastatin from 20 to 40 mg daily Check a fasting lipid panel Hypertension- Continue home medications Polycythemia- Unclear etiology Order JAK2, peripheral smear and EPO levels Diabetes mellitus- Continuing Jardiance Placed on Accu-Cheks with NovoLog SSI Remaining orders and notations as noted Resident Activity Tracking Resident Involvement: Resident Care Provided Care Provided: Adult Hospital Medicine
[2023-04-23] MEDS ORDERED: PHARMACIST DISCHARGE MED REC CONSULT PRN (21:26)
[2023-04-23] MEDS ORDERED: ENOXAPARIN INJ 40 MG/0.4 ML SYR SQ SCH (22:00)
--- NOTE | 2023-04-24 00:14 | Magnetic Resonance Report ---
Exam(s): MRI HEAD Without Contrast EXAM: MR Head Without Intravenous Contrast CLINICAL HISTORY: Reason for exam: Concern for Stroke. TECHNIQUE: Magnetic resonance images of the head/brain without intravenous contrast in multiple planes. COMPARISON: CT/CTA done earlier. FINDINGS: Brain: Small focus of acute deep white matter infarct left posterior temporal, and a slightly larger area of acute infarct in the left temporal felix radiata. No mass-effect or acute, cortical infarct. No acute or chronic hemorrhage. Mild/moderate atrophy and chronic white matter disease, including a lacunar type infarct on the right. Ventricles: No hydrocephalus or midline shift. Bones/joints: No calvarial lesions. Soft tissues: No scalp hematoma. Sinuses: Clear. Mastoid air cells: No mastoid effusion. IMPRESSION: 1. Scattered areas of acute infarct left temporal deep white matter. 2. No hemorrhage, hydrocephalus or herniation. Communications: Verify Receipt with Nurse Electronically signed by: Erendira Hirsch M.D. 04/24/23 00:13 AM
[2023-04-24 07:09] LABS: Basophils # (auto) 0.06 K/uL (0-0.2); Basophils % (auto) 0.9 %; Eosinophils # (auto) 0.18 K/uL (0-0.50); Eosinophils % (auto) 2.7 %; Hematocrit (blood only) 43.5 % (37.0-47.0); Hemoglobin 14.9 g/dl (12.0-16.0); Immature Granulocytes # (auto) 0.02 K/uL (0.01-0.20); Immature Granulocytes % (auto) 0.3 %; Lymphocytes % (auto) 40.5 %; Mean Corpuscular Hemoglobin 30.3 pg (25.0-34.0); Mean Corpuscular Hgb Conc 34.3 g/dL (32.0-36.0); Mean Corpuscular Volume 88.4 fL (80.0-100.0); Mean Platelet Volume 9.9 fL (9.4-12.4); Monocytes # (auto) 0.57 K/uL (0.11-0.59); Monocytes % (auto) 8.6 %; Neutrophils # (auto) 3.13 K/uL (1.40-6.50); Platelet Count 237 K/uL (130-400); RDW Coefficient of Variation 13.5 % (11.5-14.5); RDW Standard Deviation 43.6 fL (36.4-46.3); Red Blood Count 4.92 M/uL (4.20-5.40); White Blood Count 6.66 K/ul (4.8-10.8)
[2023-04-24 07:33] LABS: BUN Creatinine Ratio 15.8 (10-20); Calcium 9.5 mg/dl (8.6-10.3); Creatinine Clr Calc Pharmacy 97.7 ml/min; Est GFR (African American) 100.2 ml/min; Est GFR (Non-African American) 86.5 ml/min; Potassium 4.1 mmol/L (3.5-5.1)
[2023-04-24] MEDS ORDERED: TELMISARTAN 20 MG TAB PO SCH (09:00)
[2023-04-24] MEDS ORDERED: ROSUVASTATIN CALCIUM 20 MG TAB PO SCH (09:00)
[2023-04-24] MEDS ORDERED: LOSARTAN POTASSIUM 25 MG TAB PO SCH (09:00)
[2023-04-24] MEDS ORDERED: CLOPIDOGREL BISULFATE 75 MG TAB PO SCH (09:00)
[2023-04-24] MEDS ORDERED: ASPIRIN 81 MG ECTAB PO SCH (09:00)
--- NOTE | 2023-04-24 09:40 | Neurology Consultation ---
Date of Consultation April 24, 2023 Assessment & Plan (1) Acute CVA (cerebrovascular accident): (2) Aphasia: (3) Chronic cerebral ischemia: (4) HTN, goal below 130/80: (5) T2DM (type 2 diabetes mellitus): (6) Hyperlipidemia: Plan this patient had acute left temporal lobe small strokes, likely secondary to left M1 stenosis. This resulted in some expressive aphasia of a mild nature. In addition her balance has been a little bit off but she has no other focal findings, meningeal signs, or encephalopathy on examination. MRI of the brain shows a significant amount of old small vessel ischemic disease for age and condition. She does have risk factors including diabetes, hypertension, dyslipidemia all treated earlier this year. Her blood pressure has not been adequately controlled but her lipids are well controlled Patient has some emotional lability of uncertain etiology recently. Recommendations: 1. Awaiting echocardiogram results. 2. continue 81 mg aspirin +70 5 mg clopidogrel daily for 3 weeks, then discontinue aspirin and remain on clopidogrel alone. 3. Speech, Physical, and Occupational therapy consult. 4. control blood pressure as you are doing keeping mean arterial pressure between 95 and 100. 5. control glucose, trying to get the hemoglobin A1c closer to 6. 6. Stay on current dose of rosuvastatin, as her lipid parameters are well controlled. Therefore, she does not need a high dose statin. History of Present Illness Reason for Consultation: Patient is a 57-year-old, who I was asked to see at the request of Toshia Chopra D.O., for neurologic consultation regarding stroke. Requesting Physician: Toshia Chopra D.O. Attending Physician: Lukas Fung MD History of Present Illness this patient, earlier this year, was started on empagliflozin, rosuvastatin, and telmisartan for diabetes, dyslipidemia, and hypertension. The patient is also actively trying to diet and exercise and she has lost about 18 lb this year. Interestingly, she tells me that she has been "weepy" on and off since 2017. Over time and has become more frequent and she can have crying episodes 5 times a day. Most of the time she believes she thinks of something and that makes her cry. Occasionally, it just happens as a reaction. She is not having episodes of inappropriate or unusual laughing. Sometimes the last 4 5 days she noted word-finding difficulties. Her balance was off a little bit also but she did not fall. There is no incontinence of urine and there is no focal weakness or numbness. She did not have any new vision problems or cognitive changes. She arrived to the emergency room April 23 at 1:28 p.m., with a temperature 36.5, pulse 81, respiratory rate 18, blood pressure 171/100 ( the patient told me that she did not take her blood pressure medicine that day ) and O2 saturation 96%. In the ER she was noted to have word-finding difficulties and some emotional lability but no other focal neurologic signs, meningeal signs, or encephalopathy. CBC showed polycythemia and Chem profile was unremarkable. Urinalysis was normal. On April 19, hemoglobin A1c was 6.8, total cholesterol [address] scan of the head showed a possible subacute right frontal [address] angiography revealed a high-grade stenosis of the left M1 and CT angiography of the neck was unremarkable. MRI of the brain showed multiple small left temporal distribution strokes of an acute nature. In addition there was moderate old small vessel ischemic disease. I reviewed all of these films. This morning patient's blood pressure is 128/82 ( earlier today was 98/53). She remains afebrile. Echocardiogram is pending. Allergies Allergy/AdvReac Type Severity Reaction Status Date / Time No Known Allergies Allergy Unknown Verified 04/23/23 19:43 Home Medications Medication Instructions Recorded Confirmed Type empagliflozin 10 mg tablet 10 mg PO QAM #90 tabs 01/16/23 04/23/23 Rx (Jardiance) rosuvastatin 20 mg tablet 20 mg PO DAILY #90 tabs 01/16/23 04/23/23 Rx telmisartan 20 mg tablet 20 mg PO DAILY #90 tabs 01/16/23 04/23/23 Rx Patient History Medical History COVID-19 (~2020) Hyperlipidemia rosuvastatin Pulmonary embolism 2005--after left knee arthroscopy and on control--no blood thinners Surgical History History of arthroscopy of left knee meniscus repair History of section History of colonoscopy History of tooth extraction History of wisdom tooth extraction Family History (Updated 04/24/23 @ 09:29 by Chacorta Ralph MD) Grandmother (Paternal) Family history of diabetes mellitus Grandmother (Maternal) Family history of diabetes mellitus Father , age 76 of MIs Diabetes Heart disease Drug abuse Myocardial infarction Brother Heart disease Other No family history of adverse response to anesthesia Denies family history of Ovarian cancer Social History (Updated 04/24/23 @ 09:30 by Chacorta Ralph MD) Smoking Status: Former smoker Tobacco Type: Cigarettes Age Started Using Tobacco: 11; Age Quit Using Tobacco: 18; Cigarettes Per Day: socailly; Second Hand Exposure: No; Do You Dip or Chew Tobacco: No; Hx Alcohol Use: No Hx Substance Use: No Preferred Language: Thai Communication Ability: Effective Visual Impairment: Diminished Hearing Ability: Hard of Hearing Materials Intern Required: No Beliefs That Will Affect Care: None marital status: Current Living Situation: Spouse Current Living Situation Comment: Lives with and 2 kids 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 Feels Safe at Home: Yes Childhood Exposure to Second-Hand Smoke: Yes Diet: regular caffeine: Yes Dental Care, Regularly: Yes Physical Activity Frequency: 1-2 Times per Week Seatbelt Use: always Sunscreen Use: Yes (sometimes) Do you think of yourself as: straight/heterosexual Assistive Devices: Glasses Review of Systems Constitutional: no fever, no fatigue and no weakness Eyes: no diplopia, no eye pain and no worsening vision Ear, Nose, Mouth, Throat: no ear pain, no tinnitus, no hearing loss, no dizziness, no snoring, no hoarseness and no dysphagia Respiratory: no cough and no dyspnea Cardiovascular: no chest pain, no palpitations and no lightheadedness Gastrointestinal: no abdominal pain, no nausea and no vomiting Genitourinary: no dysuria, no urinary frequency and no urinary incontinence Musculoskeletal: + back pain; no neck pain, no radicular pain, no joint pain and no myalgia Integumentary: no rash and no lesions Neurologic: + abnormal speech; no gait abnormality, no localized weakness, no generalized weakness, no tingling, no numbness, no tremor(s), no abnormal movements, no headache(s), no confusion and no memory loss Psychiatric: + anxiety; no depression, no irritability, no difficulty concentrating, no confusion and no hallucinations Endocrine: no fatigue and no flushing Hematologic / Lymphatic: no easy bleeding and no easy bruising Allergy / Immunological: no urticaria and no problem reported Exam (Neuro) Physical Exam: The patient is right-handed. The patient is awake, alert, and attentive. Speech is without any dysarthria. She has some hesitancy with word finding but tends to get the word each time. She is not stating any nonsense words and can name objects read test phrases interpret pictures, and otherwise has normal language. she is fully oriented and seems to have normal long and short-term memory. She has a normal mood but tends to get teary at times talking about certain things. This only lasts a few seconds and she is back to baseline. Affect is appropriate. Pupils are 4 mm bilaterally and reactive to light. Extraocular eye muscles are intact without nystagmus. Visual acuity and visual gonzales seem normal grossly to confrontation. There are no deficits to sensation in the face in all 3 distributions of the fifth cranial nerve bilaterally. Corneal reflexes are positive bilaterally. Facial strength and symmetry was normal bilaterally. Hearing seems normal bilaterally. Palate moves well without asymmetry. There is normal sternocleidomastoid and trapezius (shoulder shrug) strength bilaterally. Tongue is midline with good strength bilaterally. Neck has a full range of motion without discomfort. There are no cervical bruits bilaterally. There are no cranial or ocular bruits. Heart is without murmur. There is a regular rhythm and rate. Cervical, thoracic, and lumbar spine are nontender to palpation. Gait is narrow based, with good arm swing, turns, and stance. Balance is normal eyes open or closed. With outstretched arms there is no drift. There are no resting, postural, or action tremors. There is no ataxia with finger to nose testing. There is good facility in the hands. No other abnormal involuntary movements are noted. Motor strength is 5/5 diffusely in the arms bilaterally including deltoids, biceps, triceps, brachioradialis, wrist flexors and extensors, surgical instrument repair specialist, and intrinsic hand muscles. Motor strength is 5/5 diffusely in the legs bilaterally including hip flexors, quadriceps, hamstrings, gastrocnemius, tibialis anterior, tibialis posterior, and Peroneii muscles. Toe extensors are normal and there is good bulk in the extensor digitorum brevis muscles bilaterally. The limbs have good tone without rigidity or spasticity. There is no atrophy noted in the muscles. Muscle bulk is normal, there is no tenderness to palpation, no myotonia to percussion, and no fasciculations seen. Sensory examination is intact to touch and pin throughout all 4 limbs diffusely. Reflexes are 2/4 in the biceps, triceps, brachioradialis, quadriceps, and Achilles tendons bilaterally. There is no clonus bilaterally. Toes are downgoing with plantar stimulation bilaterally. Peripheral pulses are present and of normal quality distally in all 4 limbs. There is no peripheral edema noted in the limbs. Results & Data Vital Signs (Past 12 Hours) Vital Signs Temp Pulse Pulse Pulse Resp BP Pulse Ox 04/24/23 08:51 37.0 C 70 16 128/82 93 04/24/23 04:01 36.4 C L 66 16 98/53 L 97 04/23/23 23:45 81 04/23/23 23:35 36.5 C 77 16 144/78 H 95 04/23/23 23:31 36.5 C 89 16 123/84 94 04/23/23 21:26 36.5 C 89 16 123/84 94 04/23/23 21:26 Pulse Ox O2 Del Method O2 Del Method 04/24/23 08:51 Room Air 04/24/23 04:01 Room Air 04/23/23 23:45 04/23/23 23:35 Room Air 04/23/23 23:31 Room Air 04/23/23 21:26 Room Air 04/23/23 21:26 97 Room Air PG Care Time/CCT Total # of Minutes Spent Total Time Spent with Patient: Total time spent is greater than 50% in coordination of care (as documented) at patient's floor/unit and/or counseling patient: Coding Level of Care Code 49714 IN/OBS CONSULT LVL 5,80M Diagnoses Acute CVA (cerebrovascular accident) I63.9 Aphasia R47.01 Chronic cerebral ischemia I67.82 HTN, goal below 130/80 I10 T2DM (type 2 diabetes mellitus) E11.9 Diabetes mellitus complication status: without complication 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
--- NOTE | 2023-04-24 09:57 | Pharmacy Report ---
- Date of Service April 24, 2023 - Pharmacy CVA/TIA Medication Review Medications to Prevent Stroke handout has been added to the patients discharge packet. Antiplatelet(s) * aspirin 81 mg PO daily + clopidogrel 75 mg PO daily x 3 weeks, then clopidogrel monotherapy thereafter Cholesterol * High intensity statin: rosuvastatin 20 mg daily (continue patient's current home dose) DVT Prophylaxis * Enoxaparin SQ Therapeutic Anticoagulation * No history of Afib/Aflutter noted Type 2 Diabetes * Patient has T2DM and patient is prescribed empagliflozin
--- NOTE | 2023-04-24 16:02 | XCELERA ---
[id number] \\[id number]
[2023-04-24] MEDS ORDERED: STROKE PATIENT DISCHARGE STA (18:18)
--- NOTE | 2023-04-24 18:27 | Discharge Summary ---
Date of Service April 24, 2023 Admission HPI Per Admitting Provider 57 year old female with a past medical history of HLD, provoked PE and DM2 presenting with 5 days of neurological symptoms. She states that for the past 5 days she has been having trouble with word finding, has been more confused and has felt off balance. She also notes that she has had increased emotional lability and hot flashes for the past few months, last menstrual period was about 2 years ago. Denies headache, vision changes, slurred speech, injury. Does note family history of stroke. ED Work-Up Significant for: Head CT, Head/Neck CTA with. No acute intracranial hemorrhage, midline shift or acute territorial infarct. Mild ill-defined white matter hypodensities are nonspecific, however favor chronic microvascular ischemic disease.1.1 cm hypodense focus within the right frontal lobe felix radiata may represent an additional area of white matter disease versus an age- indeterminate small infarct.High-grade stenosis of the M1 segment of the left middle cerebral artery. Discharge Data Allergies Allergy/AdvReac Type Severity Reaction Status Date / Time No Known Allergies Allergy Unknown Verified 04/23/23 19:43 Consultations 04/23/23 19:05 ED Decision to Admit Stat 04/23/23 21:26 Consult Neurology Routine Ordered Studies 04/23/23 13:31 CT angio head w con Stat CT angio neck with con Stat CT head/brain wo con Stat 04/23/23 21:00 MRI Brain [MR brain wo con] Stat Discharge Plan Discharge Items Patient Disposition: Home - Self-Care Reason For Visit: STROKE Discharge Diagnosis: 1. Stroke of the left temporal lobe 2. Type 2 diabetes 3. Hyperlipidemia 4. Hypertension 5. Previous history of DVT with PEs 6. Elevated hemoglobin level ("polycythemia") - follow-up needed with hematology Activity: As commented below Activity Comment: light activities only for about 1 week Exercise/Sports: Wait until after follow-up appointment Driving/Machine Use: Please refrain from driving for about 5 days Non-emergency contact: Primary Care Provider, Specialist and Neurologist Call non-emergency contact if: you have any medication questions and your symptoms worsen Follow-up/Referrals: Chacorta Ralph MD [Physician] - (4 weeks) Rudolph Hernandez CRNP [Primary Care Provider] - (within 1 week) Jodie Tracy MD [Physician] - (hematology referral - first available - for elevated hemoglobin level; we will make the referral for you ) Diet: Carb Consistent or DM2 Satinder Attending Provider Instructions: Mrs Veloz, You were hospitalized due to word finding difficulties, mild confusion, and feeling a little off balance. We performed multiple tests and found that you had suffered a stroke in the left temporal lobe of the brain. The stroke was the cause of your symptoms you had been having over the last [address] scans showed that a blood vessel on the left side of the brain was narrowed/blocked which was the culprit for the stroke. The other blood vessels of the head and neck appeared normal. We performed an echocardiogram and this did not show any findings that would have caused a stroke. Your heart function is normal. Dr Mark Ralph from [facility] saw you in consult and recommended the following - 1. ASPIRIN 81mg daily x 21 days then stop. 2. PLAVIX (CLOPIDOGREL) 75mg once daily indefinitely. 3. Ongoing use of your Crestor cholesterol medication (rosuvastatin). 4. Outpatient speech therapy. Additional recommendations - * 30-day heart monitor at home to rule out abnormal heart rhythms (namely atrial fibrillation) that can increase the risk of stroke * this device will be mailed to your home within the next 7 days * it will come with instructions on its use * the results go to your family doctor and [facility] * see Hematology at [facility] due to the elevated hemoglobin, also known as "polycythemia" * please speak with Ms Hernandez about your spirits, crying spells, etc; she will be able to help you with this Follow-up - see separate section Return to [facility] if - * you experience any recurrent symptoms of a stroke (see below) * you have chest pain * you have shortness of breath * any other concerns It was our pleasure to care for you! -Dr [facility] Provider Instructions: Risk Factors for Stroke: You can reduce your chances of stroke by working with your medical provider to adopt a healthy lifestyle. Some specific ways to lower your chance of stroke are: * If you are a smoker, now is the time to stop smoking cigarettes * If you are diabetic, improve the control of your blood sugars * Avoid excessive amounts of alcohol * Control high blood pressure * Lose weight if you are overweight * Be sure to lead an active lifestyle * Eat a healthy diet low in salt, cholesterol and fat You should know about other risk factors for stroke that you are unable to control. These include: * Age 55 years or older * Male gender * Certain racial groups: , or / * Family History of Stroke, Mini stroke or Heart Attack * Sickle Cell Disease Follow Up: It is important for you to keep your follow up appointments with your medical provider. Who to Call and When: Medical Emergencies: Call 911 immediately if you experience any of the following warning signs and symptoms of Stroke: * Sudden numbness or weakness of the face, arm or leg, especially on one side of the body * Sudden confusion, trouble speaking or understanding * Sudden trouble seeing in one or both eyes * Sudden trouble walking, dizziness, loss of balance or coordination * Sudden severe headache with no cause Do not delay calling 911 if you experience any warning signs or symptoms of a stroke. Delay in seeking medical attention may affect what treatments can be given to you. . Pending Studies at Discharge: No Stand-Alone Forms: My [facility], Smoking Cessation Medications and DC Order Prescriptions: New clopidogrel 75 mg Tablet 75 mg PO QAM Qty: 30 5RF aspirin 81 mg Tablet,Delayed Release (Dr/Ec) 81 mg PO QAM 21 Days Qty: 21 0RF Rx Instructions: purchase [id number] Continued rosuvastatin 20 mg tablet 20 mg PO DAILY Qty: 90 3RF telmisartan 20 mg tablet 20 mg PO DAILY Qty: 90 3RF Jardiance 10 mg tablet 10 mg PO QAM Qty: 90 2RF Discharge Orders: Discharge Order (Routine); Ordered 04/24/23 Ordered By: Lukas Fonseca/Other Patient Handouts: Discharge Instructions for Stroke Admission Data Admit Date/Time: 04/23/23 19:03 Attending Provider: Lukas Fung Admit Provider: Dee Dee Chopra Primary Care Provider: Rudolph Hernandez Other Providers: Kaleb Nayak ; Stephane Norwood ; Chacorta Ralph ; Emily Ziegler ; Michaelle Thomas ; Geeta Villa ; Pj Wiley ; Geeta Burks ; Geovanny Helton ; Roshan Troncoso ; Efren Jennings ; Marcell Durham ; Shira Celeste ; Essence Weinberg ; Salvador Elmore ; Rogerio Colindres ; Maryjane Box ; Dariel Ni ; Shonna Severino Other Interventions: Discharge Summary Assessment (RN) Last Done: 04/24/23 18:23 Coding Diagnoses
--- NOTE | 2023-04-25 23:00 | Electrocardiogram Report ---
Test Reason : Blood Pressure : / mmHG Vent. Rate : 072 BPM Atrial Rate : 072 BPM P-R Int : 170 ms QRS Dur : 080 ms QT Int : 394 ms P-R-T Axes : 025 -26 016 degrees QTc Int : 431 ms Normal sinus rhythm Minimal voltage criteria for LVH, may be normal variant Borderline ECG When compared with ECG of 14-AUG-2006 13:14, No significant change was found Confirmed by Jarred Dodson ([id number] on 04/25/2023 11:00:14 PM Referred By: REFERRED SELF Confirmed By:Jarred Dodson
--- NOTE | 2023-04-26 00:09 | Billing Data ---
Date of Service April 26, 2023 Coding Level of Care Code 48468 INT INP/OBS CARE
== END 2023-04-24 18:35 | disposition home or self-care (01) | DRG 66 ==
LOC: ED 13:23 → SUATTDRO 19:03 → INTOOBSV 19:03 → 2W 19:03